=== PATIENT | female | born 1985 | race Caucasian/White ===

== ENCOUNTER 2019-08-19 12:21 | Emergency (ER) | payer BC ==
[2019-08-19] MEDS ORDERED: dexAMETHasone 20 MG/5 ML VIAL IM ONE (16:26)
--- NOTE | 2019-08-19 16:35 | Emergency Department Report ---
ED Eye Problem HPI - General Chief complaint: Eye Problems Stated complaint: EYES SWELLING/ALLERGIC REACTION Time Seen by Provider: 08/19/19 16:25 Source: patient Mode of arrival: Ambulatory Limitations: No Limitations - History of Present Illness Initial comments: This pleasant 33-year-old female presents to emergency department with chief complaint of bilateral eye redness and swelling over the past 3 days. Patient reports this happens every month or 2. She states she is unsure if this is due to an infection or nonallergic reaction. She denies any drainage other than clear tearing she denies any known past medical history, current medication use or known allergies to medications. Immunizations are up-to-date. chief complaint: eye redness - Related Data Previous Rx's Medication Instructions Recorded Last Taken Type Erythromycin [Erythromycin Ophth 10 applic OP Q6HR #1 tube 08/19/19 Unknown Rx Oint] Loratadine [Claritin] 10 mg PO DAILY #15 tablet 08/19/19 Unknown Rx Propylene Glycol/Peg 400/Pf 1 each OP Q6HR #1 droperette 08/19/19 Unknown Rx [Systane 0.3-0.4% Eye Drops] Allergies Allergy/AdvReac Type Severity Reaction Status Date / Time No Known Allergies Allergy Unverified 06/16/18 18:05 ED Review of Systems ROS: Stated complaint: EYES SWELLING/ALLERGIC REACTION Other details as noted in HPI Comment: All other systems reviewed and negative Constitutional: denies: chills, fever Eyes: as per HPI, eye discharge. denies: eye pain, vision change ENT: denies: ear pain, throat pain Respiratory: denies: cough, shortness of breath, wheezing Cardiovascular: denies: chest pain, palpitations Endocrine: no symptoms reported Gastrointestinal: denies: abdominal pain, nausea, diarrhea Genitourinary: denies: urgency, dysuria, discharge Musculoskeletal: denies: back pain, joint swelling, arthralgia Skin: denies: rash, lesions Neurological: denies: headache, weakness, paresthesias Psychiatric: denies: anxiety, depression Hematological/Lymphatic: denies: easy bleeding, easy bruising ED Past Medical Hx - Past Medical History Previous Medical History?: No - Surgical History Past Surgical History?: Yes Additional Surgical History: C section - Social History Smoking Status: Current Every Day Smoker Substance Use Type: Alcohol - Medications Home Medications: Home Medications Medication Instructions Recorded Confirmed Last Taken Type Erythromycin [Erythromycin Ophth 10 applic OP Q6HR #1 tube 08/19/19 Unknown Rx Oint] Loratadine [Claritin] 10 mg PO DAILY #15 tablet 08/19/19 Unknown Rx Propylene Glycol/Peg 400/Pf 1 each OP Q6HR #1 droperette 08/19/19 Unknown Rx [Systane 0.3-0.4% Eye Drops] ED Physical Exam - General Limitations: No Limitations General appearance: alert, in no apparent distress - Head Head exam: Present: atraumatic, normocephalic - Eye Eye exam: Present: normal appearance, PERRL, EOMI, conjunctival injection, other (there is bilateral conjunctival injection with clear drainage. No periorbital edema or tenderness. Normal extraocular movements without pain.) Pupils: Present: normal accommodation - ENT ENT exam: Present: normal exam, normal orophraynx, mucous membranes moist - Neck Neck exam: Present: normal inspection, full ROM. Absent: tenderness, meningismus - Respiratory Respiratory exam: Present: normal lung sounds bilaterally. Absent: respiratory distress, wheezes, rales, rhonchi, stridor - Cardiovascular Cardiovascular Exam: Present: regular rate, normal rhythm, normal heart sounds. Absent: systolic murmur, diastolic murmur, rubs, gallop - GI/Abdominal GI/Abdominal exam: Present: soft, normal bowel sounds. Absent: distended, tenderness, guarding, rebound, rigid - Extremities Exam Extremities exam: Present: normal inspection, full ROM. Absent: tenderness - Back Exam Back exam: Present: normal inspection, full ROM. Absent: tenderness, CVA tenderness (R), CVA tenderness (L) - Neurological Exam Neurological exam: Present: alert, oriented X3, normal gait - Psychiatric Psychiatric exam: Present: normal affect, normal mood - Skin Skin exam: Present: warm, dry, intact, normal color. Absent: rash ED Medical Decision Making - Medical Decision Making Patient nontoxic in no acute distress. Vitals are stable. She had mild erythema of the bilateral eyes which we'll treat with allergic drops and antihistamines as well as erythromycin for potential infection. Recommend patient follow up with eye glass frame polisher and return emergently changing worsening symptoms. She was understanding of the diagnosis, treatment plan and follow-up instructions all of her questions were answered. - Differential Diagnosis bacterial conjunctivitis, periorbital cellulitis, allergic conjunctivitis Critical care attestation.: If time is entered above; I have spent that time in minutes in the direct care of this critically ill patient, excluding procedure time. ED Disposition Clinical Impression: Allergic conjunctivitis Qualifiers: Laterality: bilateral Qualified Code(s): H10.13 - Acute atopic conjunctivitis, bilateral Disposition: DC- TO HOME OR SELFCARE Is pt being admited?: No Does the pt Need Aspirin: No Condition: Stable Prescriptions: Loratadine [Claritin] 10 mg PO DAILY #15 tablet Erythromycin [Erythromycin Ophth Oint] 10 applic OP Q6HR #1 tube Propylene Glycol/Peg 400/Pf [Systane 0.3-0.4% Eye Drops] 1 each OP Q6HR #1 droperette Referrals: PRIMARY CAREMD [Primary Care Provider] - 3-5 Days JOSE JIMENEZ MD [Staff Physician] - 3-5 Days KALIE BOWMAN MD [Staff Physician] - 3-5 Days Forms: Work/School Release Form(ED) Time of Disposition: 16:38
== END 2019-08-19 16:50 | disposition home or self-care (01) ==
LOC: ED 12:21
DX: H10.13 Acute atopic conjunctivitis, bilateral (principal); F17.200 Nicotine dependence, unspecified, uncomplicated; Z98.890 Other specified postprocedural states; Z79.899 Other long term (current) drug therapy
CPT/HCPCS: 96372; 99282; J1100

== ENCOUNTER 2021-03-11 22:17 | Emergency (ER) | payer BC ==
[2021-03-12 00:01] VITALS: BP 102/71
[2021-03-12 00:32] LABS: Basophils % (Auto) 0.5 % (0.0-1.8); Eosinophils # (Auto) 0.1 K/mm3 (0.0-0.4); Eosinophils % (Auto) 1.8 % (0.0-4.3); Hematocrit 28.3 % (30.3-42.9); Hemoglobin 9.7 gm/dl (10.1-14.3); Lymphocytes # (Auto) 1.8 K/mm3 (1.2-5.4); Lymphocytes % (Auto) 23.4 % (13.4-35.0); Mean Corpuscular HGB Conc 34 % (30-34); Mean Corpuscular Volume 86 fl (79-97); Monocytes # (Auto) 0.8 K/mm3 (0.0-0.8); Monocytes % (Auto) 10.6 % (0.0-7.3); Platelet Count 285 K/mm3 (140-440); Red Cell Distribution Width 14.2 % (13.2-15.2)
[2021-03-12 02:04] LABS: Alanine Aminotransferase 15 units/L (7-56); Blood Urea Nitrogen 6 mg/dL (7-17); Calcium 8.7 mg/dL (8.4-10.2); Hemolysis Index 0
[2021-03-12 02:09] LABS: BUN/Creatinine Ratio 20
--- NOTE | 2021-03-12 02:53 | Ultrasound Report ---
ULTRASOUND OBSTETRIC INDICATION / CLINICAL INFORMATION: Vaginal bleeding - . TECHNIQUE: Transabdominal. COMPARISON: None available. FINDINGS: GESTATIONAL SAC: Well-defined oval shape and intrauterine in location. YOLK SAC: No significant abnormality. EMBRYO/FETUS: No significant abnormality. - [place]-Rump Length = 7.8 cm = 13 weeks, 6 day(s). - Heart Rate, beats per minute (if present) = 149 ADNEXA: 4 cm left ovarian follicular cyst FREE FLUID: None. ADDITIONAL FINDINGS: None. IMPRESSION: 1. Single, living intrauterine with estimated sonographic age of 13 weeks, 6 day(s). 2. 4 cm left ovarian follicular cyst. No free fluid Signer Name: Daniel Newman MD Signed: 03/12/2021 2:49 AM Workstation Name: [id number]
== END 2021-03-12 03:47 ==
LOC: ED 22:17
DX: O20.9 Hemorrhage in early pregnancy, unspecified (principal); Z53.21 Procedure and treatment not carried out due to patient leaving prior to being seen by health care provider; Z3A.13 13 weeks gestation of pregnancy
CPT/HCPCS: 36415; 76801; 80053; 84702; 84703; 85025; 86900; 86901

== ENCOUNTER 2022-03-27 12:27 | Outpatient (CLI) | payer BC ==
[2022-03-27] MEDS ORDERED: LACTATED RINGERS 500 ML IV ONE (14:39)
[2022-03-27 15:20] LABS: Color,Urine Straw (Yellow)
[2022-03-27 15:28] LABS: Mucus,Urine FEW /HPF
--- NOTE | 2022-03-27 17:18 | Ultrasound Report ---
Limited OB Ultrasound Biophysical profile HISTORY: wellbeing. TECHNIQUE: Grayscale and color imaging performed. COMPARISON: OB ultrasound from 06/04/2021 FINDINGS: Single viable intrauterine gestation with cephalic presentation. Heart rate was 145 bpm. AF I is 11.3 cm. On biophysical profile, the fetus received a score of 2 out of 2 for breathing, movement, posture/ton e, and HINA. Total score was 8 out of 8. IMPRESSION: 1. Single viable intrauterine gestation as above. 2. Normal biophysical profile. Signer Name: Dimitry Humphrey MD Signed: 03/27/2022 5:13 PM Workstation Name: [id number]
[2022-03-27 17:27] VITALS: BP 104/55
== END 2022-03-27 17:50 | disposition home or self-care (01) ==
LOC: TRG 12:27 → APU 13:13 → TRG 17:50
PROVIDERS: ATTEND Obstetrics & Gynecology
DX: O09.893 Supervision of other high risk pregnancies, third trimester (principal); O47.03 False labor before 37 completed weeks of gestation, third trimester; Z3A.33 33 weeks gestation of pregnancy
CPT/HCPCS: 59025; 76815; 76819; 81001